=== PATIENT | female | born 1975 | race Caucasian/White ===

== ENCOUNTER 2022-11-07 09:00 | Inpatient (IN) ==
--- NOTE | 2022-10-24 16:15 | Anesthesiology Consultation ---
Date of Service October 24, 2022 Assessment & Plan (1) Encounter for pre-operative examination: - medical clearance 10/18/22: "...spinal fusion...has not taken blood pressure medication for a couple days...BP 144/92...EKG normal sinus rhythm no [sic] any acute ischemic changes...medically stable for spinal fusion surgery..." - COVID screening: Per classified advertising clerk on 10/24/2022: Travel screen negative, no known COVID-19 positive contacts or current COVID-19 related symptoms in past 2 weeks. To surgeon's discretion if preop COVID testing is needed. Chart Review Chart Review: Acceptable Risk for Surgery and Patient NOT seen in Pre Admission Testing History Surgery Operation Date: 11/05/22 07:45 Proposed Procedures p L5-S1 Decompression and Fusion, Spinal Cord Monitoring - Hawk Ramos, Height/Weight Height: 5 ft 5 in Weight: 97.522 kg Allergies Allergy/AdvReac Type Severity Reaction Status Date / Time No Known Allergies Allergy Verified 10/24/22 14:08 Medications Home Medications Medication Instructions Recorded Confirmed Last Taken amlodipine 5 mg tablet 5 mg PO HS 10/24/22 10/24/22 Unknown gabapentin 300 mg capsule 300 mg PO TID 10/24/22 10/24/22 Unknown norethin-ethinyl estradiol-iron 1 tab PO QAM 10/24/22 10/24/22 Unknown 0.8 mg-25 mcg(24)/75 mg(4) chew tablet (Generess Fe) oxycodone-acetaminophen 5 mg-325 1 tab PO TID PRN Pain 10/24/22 10/24/22 Unknown mg tablet (Percocet) Past Medical History Medical History (Updated 10/24/22 @ 16:09 by Anh Mccarthy PA-C) Chronic back pain Degenerative disc disease Hx of motion sickness Hypertension Nausea and vomiting after administration of anesthetic agent Sciatic leg pain left leg Spinal stenosis L5/S1 Past Family History Family History Other No family history of adverse response to anesthesia Past Surgical History Surgical History H/O wisdom tooth extraction History of appendectomy History of tonsillectomy (1980) S/P arthroscopy of right shoulder SLAP repair S/P cervical spinal fusion C4-C5-C6 (full rom) S/P epidural steroid injection Social History Smoking Status: Never smoker Do You Dip or Chew Tobacco: No Hx Alcohol Use: Yes alcohol intake frequency: holidays/special occasions only Hx Substance Use: No substance use type: does not use Testing Laboratory Results 10/12/2022 WBC: 4.8 H/H: 13/40 PLATELETS: 246 SODIUM: 139 POTASSIUM: 4.2 CHLORIDE: 106 CO2: 26 BUN: 9 CREATININE: 0.7 GLUCOSE: 105 PT: 15 PTT: 31 INR: 1.2 UA: dark yellow, negative, trace urine ketones, 3 urine casts, moderate blood Electrocardiogram Date: 10/18/22 Sinus rhythm, rate 80 bpm Chest X-Ray Date: 10/12/22 No acute cardiopulmonary abnormality seen 3mm soft tissue nodule right upper lobe. Suggest follow-up examination in 6 months
[~2022-11-07 09:00] MED LIST: ACETAMINOPHEN 500 MG TAB PO SCH; CeleBREX 200 MG CAP PO SCH; GABAPENTIN 900 MG DOSE PO SCH; LR 15ML/HR IV SCH; ceFAZolin 2000MG 2,000 MG/15 ML SYR IV SCH
[2022-11-07] MEDS ORDERED: LR 15ML/HR IV SCH (10:00)
--- NOTE | 2022-11-07 10:15 | History & Physical Bridge Note ---
Date of Service November 07, 2022 History & Physical Bridge Note I have examined the patient, reviewed the History & Physical and in the interval since the performance of the History & Physical I have noted the following changes of clinical significance: no changes noted
[2022-11-07] MEDS ORDERED: PROMETHAZINE HCL 12.5 MG in SODIUM CHLORIDE 0.9% 50 ML IV PRN ×2 (10:16→13:56)
[2022-11-07] MEDS ORDERED: NALOXONE HCL 0.4 MG/1 ML VIAL/CARP IV PRN ×2 (10:16→13:56)
[2022-11-07] MEDS ORDERED: ATROPINE SULFATE 0.1 MG/ML 10ML SYR IV PRN (10:16)
[2022-11-07] MEDS ORDERED: ePHEDrine sulfate 50 MG/ML AMP IV PRN (10:16)
[2022-11-07] MEDS ORDERED: FLUMAZENIL 0.1 MG/1 ML 10 ML VIAL IV PRN (10:16)
[2022-11-07] MEDS ORDERED: LABETALOL HCL IV 5 MG/ML 20ML IV PRN (10:16)
[2022-11-07] MEDS ORDERED: ONDANSETRON INJ 2 MG/ML 2 ML VIAL IV PRN ×2 (10:16→13:56)
--- NOTE | 2022-11-07 10:16 | History & Physical Report ---
Date of Service November 07, 2022 Assessment & Plan (1) Neurogenic claudication due to lumbar spinal stenosis: Plan: L5-S1 decompression and fusion History of Present Illness Chief Complaint: Back and leg pain Primary Care Provider: Pawel Daly Allergies Allergy/AdvReac Type Severity Reaction Status Date / Time No Known Allergies Allergy Verified 11/07/22 09:48 Home Medications Medication Instructions Recorded Confirmed Type amlodipine 5 mg tablet 5 mg PO HS 10/24/22 11/07/22 History gabapentin 300 mg capsule 300 mg PO TID 10/24/22 11/07/22 History norethin-ethinyl estradiol-iron 1 tab PO QAM 10/24/22 11/07/22 History 0.8 mg-25 mcg(24)/75 mg(4) chew tablet (Generess Fe) oxycodone-acetaminophen 5 mg-325 1 tab PO TID PRN Pain 10/24/22 11/07/22 History mg tablet (Percocet) Past Med/Surg History Medical History (Updated 11/07/22 @ 10:16 by Hawk Ramos DO) Chronic back pain Degenerative disc disease Hx of motion sickness Hypertension Nausea and vomiting after administration of anesthetic agent Sciatic leg pain left leg Spinal stenosis L5/S1 Surgical History H/O wisdom tooth extraction History of appendectomy History of tonsillectomy (1980) S/P arthroscopy of right shoulder SLAP repair S/P cervical spinal fusion C4-C5-C6 (full rom) S/P epidural steroid injection Family History Other No family history of adverse response to anesthesia Social History Smoking Status: Never smoker Second Hand Exposure: No; Do You Dip or Chew Tobacco: No; Tobacco Cessation Education Requested by Patient: No Hx Alcohol Use: Yes Hx Substance Use: No Preferred Language: British Communication Ability: Effective Web Specialist Required: No Beliefs That Will Affect Care: None Current Living Situation: Alone Other Information That Helps Us Care for You: No Feels Safe at Home: Yes Safety Concerns: Feels Safe At This Time Assistive Devices: None Physical Exam Physical Exam: Patient is alert and oriented Heart regular rhythm Lungs clear Results & Data Results & Data Vital Signs (Past 12 Hours) Vital Signs Temp Pulse Resp BP Pulse Ox O2 Del Method 11/07/22 09:51 37 C 96 H 20 134/98 96 Room Air
[2022-11-07] MEDS ORDERED: SCOPOLAMINE 1 MG TDSY TD ONE (10:20)
[2022-11-07] MEDS ORDERED: BUPIVACAINE/EPINEPHRINE 0.25% 1:200,000 30 ML VIAL ONE (10:28)
[2022-11-07] MEDS ORDERED: fentaNYL citrate PF 100 MCG/2 ML VIAL ONE (10:34)
[2022-11-07] MEDS ORDERED: MIDAZOLAM HCL 1 MG/ML 2ML VIAL ONE (10:34)
[2022-11-07] MEDS ORDERED: LIDOCAINE 2% 2 ML VIAL/AMP(20MG/ML) INFIL ONE (10:36)
[2022-11-07] MEDS ORDERED: DEXAMETHASONE SOD INJ 4 MG/ML VIAL ONE (10:36)
[2022-11-07] MEDS ORDERED: ROCURONIUM BROMIDE 10 MG/ML 5 ML VIAL IV ONE ×3 (10:36→12:02)
[2022-11-07] MEDS ORDERED: PROPOFOL IV EMULSION 10 MG/ML 20 ML VIAL IV ONE (10:36)
[2022-11-07] MEDS ORDERED: ONDANSETRON INJ 2 MG/ML 2 ML VIAL ONE (10:36)
[2022-11-07] MEDS: ceFAZolin 330 MG/ML 1 GM VIAL ONE ×2 (10:42→11:44)
[2022-11-07] MEDS ORDERED: FLOSEAL HEMOSTATIC MATRIX 10ML TOP ONE (11:22)
[2022-11-07] MEDS ORDERED: SUGAMMADEX SODIUM 200 MG/2 ML VIAL IV ONE (11:51)
--- NOTE | 2022-11-07 12:18 | Operative Report ---
Post Operative Report Pre & Post Diagnosis Operation Date: 11/07/22 10:45 Pre-Op Diagnosis: Lumbar region spondylolisthesis. Morbid obesity Post-Op Diagnosis: Same I identified the patient and participated in the time-out.: Yes Procedure Operation Date: 11/07/22 10:45 Actual Procedures 1. Lumbar decompression with bilateral medial facetectomies L4-L5 and foraminotomies L5-S1. #2 posterior spinal fusion L5-S1. #3 placed posterior instrumentation L5-S1. #4 interbody fusion L5-S1. #5 placement of Spira 14 x 26 mm cage at L5-S1. #6 placement locally harvested morselized autograft in the posterior gutters. #7 placement of I factor plan of the test interbody space and posterior gutters. Surgeon Hawk Ramos, It Coordinator Zari Najera Estimated Blood Loss 200 Findings See Below Patient is 5 foot 5 weighing over 110 kg with a BMI in excess of 40. The patient's body habitus did contribute to significant technical difficulty required deepest retractors and longer instruments in order to perform her procedure. This had at least 50% increased operative time. Specimens none Indications This is a 47-year-old female who presents above-mentioned diagnosis and failing since course of nonoperative care is here for surgical invention. Description of Procedure Patient was met with identified informed consent obtained. Patient was then taken to the operative suite underwent a patient placed in a prone position the Jex table top Colton frame. All bony prominences well-padded eyes inspected to ensure no external pressure placed upon the. This point the lumbar spine was prepped and draped in a sterile fashion. Sharp dissection with the assistance of Bovie cautery to form down to and exposing the lamina and transverse processes of L5 and sacral ala bilaterally. From caudal cephalad fashion complete laminectomy L5 was performed including partial laminectomy of L4 including bilateral medial facetectomies and foraminotomies addressing severe spinal stenosis. Obvious pars defect identified. After complete decompression pedicle screws were placed in L5 and S1 levels bilaterally with assistance of fluoroscopy and appropriate sized sheridan placed. By way of a trans foraminal approach on the left pleat discectomy L5-S1 was performed endplates corrected to subcortically bone and a 14 x 26 mm Spira cage with I factor tapped in position. The rods were then locked into final position bilaterally. The transverse processes of L5 and sacral ala burred to subcortical bleeding bone. I factor combined with the test and locally harvested morselized autograft was placed in the posterior gutters. 15 round ROBERT drain inserted. The incision was then closed with 1 Vicryl the fascia 2-0 Vicryl subcutaneously and 4 Monocryl for final skin closure. Steri-Strips sterile dressing placed. Patient waken taken to PACU stable condition. Please note spinal cord monitoring utilized at the procedure no changes noted. Lastly Zari Najera is present at the entire procedure involved the patient positioning complex portions of the surgery and f inal skin closure. I attest to the content of the Intraoperative Record and any orders documented therein. Any exceptions are noted below.
[2022-11-07] MEDS: fentaNYL citrate PF 100 MCG/2 ML VIAL IV PRN ×4 (12:45→13:03)
[2022-11-07] MEDS: HYDROmorphone INJ 1 MG/ML SYRINGE IV PRN ×2 (13:09→13:18)
--- NOTE | 2022-11-07 13:13 | Fluoroscopy Report ---
FL lumbar spine 2-3V CLINICAL HISTORY: L5-S1 DFI COMPARISON STUDY: None FLUOROSCOPY TIME: 25 seconds FLUOROSCOPY IMAGES: 2 EXPOSURE DOSE: 35.02 mGy FINDINGS: Laminectomy with posterior interbody sheridan and screw fusion and discectomy at L5-S1. Hardware appears intact. No acute fracture or unexpected opaque foreign body identified. IMPRESSION: Fluoroscopic assistance as above. ACT 112: Negative or not required by law. Electronically signed by: Luis Hawk M.D. 11/07/2022 1:11 PM
--- NOTE | 2022-11-07 13:46 | Anesthesiology Progress Note ---
Date of Service November 07, 2022 Anesthesia Post Procedure Vital Signs Vital Signs: Temp Pulse Pulse Resp BP Pulse Ox O2 Del Method 11/07/22 13:35 36.8 C 60 12 130/98 100 Nasal Cannula 11/07/22 13:25 69 12 141/77 H 100 Nasal Cannula 11/07/22 13:15 81 14 141/91 H 93 Room Air 11/07/22 13:05 84 18 150/89 H 96 Room Air 11/07/22 12:55 81 19 160/97 H 99 Oxymask 11/07/22 12:45 81 17 157/100 H 99 Oxymask 11/07/22 12:37 36.1 C L 82 18 157/99 H 99 Oxymask 11/07/22 09:51 37 C 96 H 20 134/98 96 Room Air O2 Flow Rate 11/07/22 13:35 2 11/07/22 13:25 2 11/07/22 13:15 11/07/22 13:05 11/07/22 12:55 5 11/07/22 12:45 9 11/07/22 12:37 9 11/07/22 09:51 Pain Intensity Left Leg: Pain Intensity: 5 Back: Pain Intensity: 6 Transfer of Care Handoff Completed per policy Notes Mental Status: alert / awake / arousable Patient Amnestic to Procedure: Yes Nausea / Vomiting: adequately controlled Pain: adequately controlled Airway Patency, RR, SpO2: stable & adequate BP & HR: stable & adequate Hydration State: stable & adequate Anesthetic Complications: no major complications apparent
[2022-11-07] MEDS ORDERED: SOD PHOSPHATE/SOD BIPHOSPHATE ENEMA 132 ML BTL PR PRN (13:56)
[2022-11-07] MEDS ORDERED: DO NOT ADMINISTER PNEUMOCOCCAL VACCINE PRN (13:56)
[2022-11-07] MEDS ORDERED: hydrOXYzine HCl 25 MG TAB PO PRN (13:56)
[2022-11-07] MEDS ORDERED: oxyCODONE HCL IR 5 MG TAB (IMMEDIATE RELEASE) PO PRN (13:56)
[2022-11-07] MEDS ORDERED: FAMOTIDINE 20 MG TAB PO PRN (13:56)
[2022-11-07] MEDS ORDERED: HYDROmorphone INJ 1 MG/ML SYRINGE IV PRN (13:56)
[2022-11-07] MEDS ORDERED: DO NOT ADMINISTER FLU VACCINE PRN (13:56)
[2022-11-07] MEDS ORDERED: diphenhydrAMINE Capsule 25 MG CAP PO PRN (13:56)
[2022-11-07] MEDS ORDERED: LORazepam 2 MG/1 ML VIAL IV PRN (13:56)
[2022-11-07] MEDS ORDERED: ALUMINUM/MAGNESIUM SUSP 30 ML UDC PO PRN (13:56)
[2022-11-07] MEDS ORDERED: LORazepam 0.5 MG TAB PO PRN (13:56)
[2022-11-07] MEDS ORDERED: ACETAMINOPHEN 500 MG TAB PO PRN (13:56)
[2022-11-07] MEDS ORDERED: bisacodyL 10 MG SUPP PR PRN (13:56)
[2022-11-07] MEDS ORDERED: HYDROmorphone INJ 0.5 MG/0.5 ML SYR IV PRN (13:56)
[2022-11-07] MEDS ORDERED: ACETAMINOPHEN 1,000 MG/100 ML VIAL IV PRN (13:56)
[2022-11-07] MEDS ORDERED: MAGNESIUM HYDROXIDE SUSP 30 ML UDC PO PRN (13:56)
[2022-11-07] MEDS ORDERED: METOCLOPRAMIDE HCL INJ 5 MG/ML 2 ML VIAL IV PRN (13:56)
[2022-11-07] MEDS ORDERED: ONDANSETRON 4 MG OD TAB PO PRN (13:56)
[2022-11-07] MEDS: LACTATED RINGER'S 1,000 ML IV SCH ×2 (14:06→19:57)
[2022-11-07] MEDS: GABAPENTIN 300 MG CAP PO SCH ×2 (14:56→19:57)
[2022-11-07] MEDS: DOCUSATE SODIUM/SENNA 50/8.6MG TAB PO SCH (19:57)
[2022-11-07] MEDS: ceFAZolin 2000MG 2,000 MG/15 ML SYR IV SCH (19:57)
[2022-11-07] MEDS: amLODIPine BESYLATE 5 MG TAB PO SCH (19:58)
[2022-11-07] MEDS: PATIENT'S OWN ORAL CONTRACEPTIVE PO SCH (20:59)
[2022-11-08] MEDS: ceFAZolin 2000MG 2,000 MG/15 ML SYR IV SCH (02:21)
[2022-11-08] MEDS: POLYETHYLENE (MIRALAX) 17 GM PACK PO SCH ×4 (05:17→23:16)
[2022-11-08 07:19] LABS: Basophils # (auto) 0.02 K/uL (0-0.2); Basophils % (auto) 0.2 %; Eosinophils # (auto) 0.02 K/uL (0-0.50); Eosinophils % (auto) 0.2 %; Hematocrit (blood only) 29.3 % (37.0-47.0); Hemoglobin 9.9 g/dl (12.0-16.0); Immature Granulocytes # (auto) 0.06 K/uL (0.01-0.20); Immature Granulocytes % (auto) 0.5 %; Lymphocytes % (auto) 13.5 %; Mean Corpuscular Hemoglobin 31.4 pg (25.0-34.0); Mean Corpuscular Hgb Conc 33.8 g/dL (32.0-36.0); Mean Platelet Volume 10.2 fL (9.4-12.4); Monocytes # (auto) 0.92 K/uL (0.11-0.59); Monocytes % (auto) 7.8 %; Neutrophils % (auto) 77.8 %; Platelet Count 262 K/uL (130-400); RDW Coefficient of Variation 12.3 % (11.5-14.5); RDW Standard Deviation 42.1 fL (36.4-46.3); Red Blood Count 3.15 M/uL (4.20-5.40); White Blood Count 11.82 K/ul (4.8-10.8)
[2022-11-08 08:02] LABS: Calcium 8.3 mg/dl (8.6-10.3); Potassium 3.1 mmol/L (3.5-5.1)
[2022-11-08 08:08] LABS: BUN Creatinine Ratio 11.3 (10-20); Creatinine Clr Calc Pharmacy 140.3 ml/min; Est GFR (African American) 125.3 ml/min; Est GFR (Non-African American) 108.1 ml/min
--- NOTE | 2022-11-08 08:21 | Orthopedic Progress Note ---
Date of Service November 08, 2022 Assessment & Plan (1) Neurogenic claudication due to lumbar spinal stenosis: Plan: At this time we will continue physical therapy monitor ROBERT output hopefully discharge home next few days. Admission and Anticipated Discharge Date Admission Date: November 07, 2022 Subjective back pain controlled leg pain markedly improved Physical Exam Physical Exam: Patient is good strength testing. Appears comfortable. Results & Data Vital Signs (Past 12 Hours) Vital Signs Temp Pulse Resp BP Pulse Ox O2 Del Method 11/08/22 07:44 36.9 C 79 18 110/67 94 Room Air 11/08/22 02:52 36.8 C 74 20 105/70 95 Room Air 11/07/22 22:30 37.1 C 77 20 112/67 93 Room Air
[2022-11-08] MEDS: PATIENT'S OWN ORAL CONTRACEPTIVE PO SCH (08:36)
[2022-11-08] MEDS: GABAPENTIN 300 MG CAP PO SCH ×3 (08:36→19:23)
[2022-11-08] MEDS: dexAMETHasone 6 MG in SYRINGE 0 ML IV SCH (08:37)
[2022-11-08] MEDS: traMADol HCL 50 MG TABLET PO PRN (18:12)
[2022-11-08] MEDS: DOCUSATE SODIUM/SENNA 50/8.6MG TAB PO SCH (19:23)
[2022-11-08] MEDS: amLODIPine BESYLATE 5 MG TAB PO SCH (19:23)
[2022-11-09] MEDS: POLYETHYLENE (MIRALAX) 17 GM PACK PO SCH (05:12)
[2022-11-09] MEDS: dexAMETHasone 6 MG in SYRINGE 0 ML IV SCH (09:14)
[2022-11-09] MEDS: GABAPENTIN 300 MG CAP PO SCH (09:14)
[2022-11-09] MEDS: PATIENT'S OWN ORAL CONTRACEPTIVE PO SCH (09:15)
--- NOTE | 2022-11-09 09:36 | Discharge Summary ---
Date of Service November 09, 2022 Discharge Data Procedures Performed Operation Date: 11/07/22 10:45 Actual Procedures p L5-S1 Decompression and Fusion, Interbody Fusion at L5-S1, Spinal Cord Monitoring - Hawk Ramos DO Hospital Course (1) Neurogenic claudication due to lumbar spinal stenosis: Patient is a pleasant 47-year-old female with history physical examination and radiographic images consistent with above-mentioned diagnosis. For this reason she brought to the operating room on 11/07/2022 and undergone a lumbar decompression fusion at L5-S1 performed by Dr. Ramos. She left the operating room with a ROBERT drain in place and is transferred to PACU in stable condition. She was then transferred to the orthopedic floor. She was placed on GI and DVT prophylaxis. She was seen by physical therapy postoperative day #1 for ambulation and gait training. On postoperative day or 2 she was deemed safe for home discharge. Her discharge instructions were to change her dressing once jyoti ly until there is no drainage and then she may shower. She was to avoid lifting anything heavier than 5 pounds. She is to avoid driving until her 2-week postop visit. She is to follow-up with our office approximately 2 weeks or sooner if she develops any increased pain drainage from the incision fevers or chills.
[2022-11-09] MEDS: traMADol HCL 50 MG TABLET PO PRN (12:00)
== END 2022-11-09 12:50 | disposition home or self-care (01) | DRG 454 ==
LOC: ASU 09:00 → MERGE 12:52 → 3E 12:52
DX: Z98.1 Arthrodesis status; Z68.41 Body mass index [BMI] 40.0-44.9, adult; M43.16 Spondylolisthesis, lumbar region; E66.01 Morbid (severe) obesity due to excess calories; I10 Essential (primary) hypertension; M48.062 Spinal stenosis, lumbar region with neurogenic claudication